=== PATIENT | female | born 1995 | race Caucasian/White ===

== ENCOUNTER → 2020-09-25 | Outpatient (CLI) | payer SELFPAY ==
[2020-09-25 12:33] LABS: BASO % 0.5 % (0.0-2.0); EOS # 0.2 (0.0-0.7); EOS % 1.8 % (0-4.0); GRAN # 4.9 (1.4-6.5); GRAN % 58.9 % (42.2-75.2); HEMATOCRIT 38.3 % (37.0-47.0); HEMOGLOBIN 11.8 g/dl (12.5-16.0); LYMPH # 2.8 (1.2-3.4); LYMPH % 33.7 % (20.0-51.0); MEAN CELL VOLUME 79 fl (80.0-100.0); MEAN CORPUSCULAR HEMOGLOBIN 24 pg (27.0-31.0); MEAN CORPUSCULAR HGB CONC 31 g/dl (33.0-37.0); MEAN PLATELET VOLUME 9.8 fl (7.4-10.4); MONO # 0.4 (0.1-0.6); PLATELET COUNT 445 K/mm3 (130-400); RED BLOOD COUNT 4.85 M/mm3 (4.10-5.30); REDCELL DISTRIBUTION WIDTH-CV 14.2 % (11.5-14.5)
[2020-09-25 12:46] LABS: ALBUMIN 4.2 gm/dL (3.5-5.0); BILIRUBIN,TOTAL 0.3 mg/dL (0.0-1.0); CALCIUM 9.3 mg/dL (8.4-10.2); CREATININE, serum 0.76 (0.52-1.25); POTASSIUM 4.1 mmol/L (3.4-5.0); TOTAL PROTEIN 8.1 gm/dL (6.4-8.2)
[2020-09-25 13:16] LABS: THYROID STIMULATING HORMONE 1.77 uIU/mL (0.465-4.680)
[2020-09-26 22:06] LABS: IRON,SERUM 36 ug/dL (35-150)
[2020-09-26 22:16] LABS: TOTAL IRON BINDING CAPACITY 306 ug/dL (265-497)
== END ==
LOC: COL.RAD 10:51
PROVIDERS: Registered Nurse
DX: R06.02 Shortness of breath (principal); R00.2 Palpitations; E55.9 Vitamin D deficiency, unspecified; Z79.899 Other long term (current) drug therapy

== ENCOUNTER → 2020-09-28 | Outpatient (CLI) | payer SELFPAY | LOC: COL.CARD 11:05 | DX: R00.2 Palpitations (principal) ==

== ENCOUNTER → 2020-10-18 | Outpatient (CLI) | payer OTHER | LOC: COL.VAS 13:28 | DX: R00.2 Palpitations (principal) ==

== ENCOUNTER → 2020-10-24 | Outpatient (CLI) | payer OTHER | LOC: COL.CARD 11:36 | DX: R00.2 Palpitations (principal) ==